=== PATIENT | female | born 1975 | race Caucasian/White ===

== ENCOUNTER 2017-10-16 19:03 | Emergency (ER) | payer MEDICAID, OTHER ==
[~2017-10-16] VITALS: Ht 149.9 cm; Wt 85.0 kg
[2017-10-16 19:08] VITALS: BP 141/88
--- NOTE | 2017-10-16 19:15 | NUR ---
PATIENT PRESENTS TO ED WITH VAGINAL BLEEDING, SUPRAPUBIC PAIN RADIATING TO RIGHT LOWER BACK X3 DAYS. PT STATES SHE IS SATURATING 12 FEMININE PADS DAILY X3 DAYS; SUPRAPUBUIC PAIN IS DESCRIBED A DULL ACHE AND STATES NO BURNING WITH URINATION AND NO VAGINAL DISCHARGE. NO ODOR NOTED. DENIES N/V/D; SKIN IS PINK/WARM/DRY; AAOX4 WITH EVEN AND STEADY GAIT; LUNGS CLEAR BL; HR EVEN AND REGULAR; PT DENIES ANY FEVER, CP, SOB, OR COUGH AT THIS TIME; PATIENT STATES PAIN OF 4/10 AT THIS TIME; VSS; PATIENT POSITIONED FOR COMFORT; HOB ELEVATED; BEDRAILS UP X2; BED DOWN. ER MD MADE AWARE OF PT STATUS. CONTINUE TO MONITOR.
--- NOTE | 2017-10-16 19:15 | NUR ---
PT AMBULATED TO BED 1. GAVE REPORT TO NIKA LY
[2017-10-16] MEDS ORDERED: KETOROLAC 60 MG/2 ML VIAL IM ONE (19:50)
--- NOTE | 2017-10-16 20:20 | NUR ---
Patient discharged with v/s stable. Written and verbal after care instructions given and explained. Patient alert, oriented and verbalized understanding of instructions. Ambulatory with steady gait. All questions addressed prior to discharge. ID band removed. Patient advised to follow up with PMD. Rx of Motrin and Provera given. Patient educated on indication of medication including possible reaction and side effects. Opportunity to ask questions provided and answered.
[2017-10-16 20:24] VITALS: BP 139/86
== END 2017-10-16 20:20 | disposition home or self-care (01) ==
LOC: MED 19:03
DX: N93.9 Abnormal uterine and vaginal bleeding, unspecified (principal); M54.5 Low back pain; E07.9 Disorder of thyroid, unspecified
CPT/HCPCS: 81002; 81025; 96372; 99283; J1885